=== PATIENT | female | born 1985 | race African-American/Black ===

== ENCOUNTER 2021-12-07 04:27 | Day surgery (SDC) | payer BC, OTHER ==
[2021-12-06 19:02] VITALS: BMI 31.5
[2021-12-07] MEDS ORDERED: BUPIVACAINE HCL/PF 0.5% (5MG/ML) 10 ML VIAL ONE (10:24)
[2021-12-07] MEDS ORDERED: LIDOCAINE HCL/PF 2% SDV 5ML VIAL ONE (11:22)
[2021-12-07] MEDS ORDERED: MIDAZOLAM HCL 2 MG/2 ML SINGLE DOSE VIAL ONE (11:22)
[2021-12-07] MEDS ORDERED: PROPOFOL 20 ML ONE (11:22)
[2021-12-07] MEDS ORDERED: ONDANSETRON 4 MG/2 ML VIAL ONE (11:22)
[2021-12-07] MEDS ORDERED: DEXAMETHASONE SOD PHOSPHATE 4 MG/1 ML VIAL ONE (11:22)
[2021-12-07] MEDS ORDERED: BUPIVACAINE HCL/PF 0.5% (5MG/ML) 10 ML VIAL IJ ONE ×2 (12:10)
[2021-12-07] MEDS ORDERED: GLYCOPYRROLATE 0.2 MG/1 ML VIAL ONE (12:59)
[2021-12-07] MEDS ORDERED: KETOROLAC TROMETHAMINE 30 MG/1 ML VIAL ONE (12:59)
[2021-12-07] MEDS ORDERED: NEOSTIGMINE METHYLSULFATE 0.5 MG/ML - 10 ML MDV ONE (12:59)
[2021-12-07] MEDS ORDERED: ACETAMINOPHEN INJECTION 100 ML IVPB ONE (13:08)
[2021-12-07] MEDS ORDERED: PROMETHAZINE HCL 25 MG/1 ML VIAL IVPUSH PRN (13:54)
[2021-12-07] MEDS ORDERED: oxyCODONE HCL 5 MG TABLET PO PRN ×2 (13:54)
[2021-12-07] MEDS ORDERED: ONDANSETRON 4 MG/2 ML VIAL IVPUSH PRN (13:54)
[2021-12-07] MEDS ORDERED: oxyCODONE HCL 5 MG TABLET ONE (15:50)
[2021-12-07] MEDS ORDERED: oxyCODONE HCL 5 MG TABLET PO ONE (15:55)
[2021-12-07 17:29] VITALS: BP 114/71; PULSE 74; RESP 18; TEMP 98.5
== END 2021-12-07 18:17 | disposition home or self-care (01) ==
LOC: JASU-SURG 04:27
PROVIDERS: ATTEND Obstetrics & Gynecology
PROC: 0UT74ZZ Resection of Bilateral Fallopian Tubes, Percutaneous Endoscopic Approach (ICD-10-PCS; principal; 2021-12-07 10:30)
DX: N70.11 Chronic salpingitis (principal); N97.9 Female infertility, unspecified; N73.6 Female pelvic peritoneal adhesions (postinfective)
CPT/HCPCS: 81025; 88302-TC; 94760